=== PATIENT | male | born 1965 | race Caucasian/White ===

== ENCOUNTER → 2017-11-25 | Outpatient (CLI) | payer BC | END | disposition home or self-care (01) | LOC: LABWHC1 12:00 | PROVIDERS: ATTEND Surgery | DX: Z01.812 Encounter for preprocedural laboratory examination (principal) | CPT/HCPCS: 36415; 86850; 86900; 86901 ==

== ENCOUNTER 2017-12-02 11:54 | Day surgery (SDC) | payer BC ==
[2017-11-23 18:14] VITALS: BMI 29.0
--- NOTE | 2017-12-02 11:05 | P.GSHP ---
History of Present Illness H&P Date: 12/02/17 Chief Complaint: Incarcerated umbilical hernia This a 52-year-old male who presents today for laparoscopic robotic system repair of incarcerated umbilical hernia. Past Medical History Past Medical History: Asthma, Hypertension, Seizure Disorder Additional Past Medical History / Comment(s): Umbilical hernia, past hx of seizures, none since 1973, childhood asthma hx History of Any Multi-Drug Resistant Organisms: None Reported Past Surgical History: Orthopedic Surgery Additional Past Surgical History / Comment(s): left knee arthroscopy Past Anesthesia/Blood Transfusion Reactions: No Reported Reaction Smoking Status: Current every day smoker Medications and Allergies Home Medications Medication Instructions Recorded Confirmed Type Lisinopril [Zestril] 20 mg PO QAM 11/23/17 11/23/17 History Allergies Allergy/AdvReac Type Severity Reaction Status Date / Time No Known Allergies Allergy Verified 11/23/17 18:08 Surgical - Exam - General well developed, no distress - Eyes PERRL - ENT normal pinna - Neck no masses - Respiratory normal expansion - Cardiovascular Rhythm: regular - Abdomen Abdomen: soft, non tender Hernia: umbilical (Incarcerated) Assessment and Plan Assessment: Incarcerated umbilical hernia. We'll perform laparoscopic robotic assistance repair.
[~2017-12-02 11:54] MED LIST: DEXAMETHASONE SOD PHOSPHATE 10 MG/ML 1 ML VIAL IV ONE; HEPARIN SODIUM,PORCINE 5,000 UNIT/ML 1 ML VIAL SQ ONE; LACTATED RINGERS 1,000 ML IV ONE; LIDOCAINE 1% 20 ML VIAL (10MG/ML) FOR IV START INTRADERMA PRN; ONDANSETRON 4 MG/2 ML VIAL IVP ONE; SCOPOLAMINE 1.5MG/72HR PATCH TRANSDERM ONE; ceFAZolin IN SWFI 2 GM/20 ML SYRINGE IVP ONE
[2017-12-02 12:23] VITALS: RESP 16; TEMP 97.9
[2017-12-02] MEDS ORDERED: KETOROLAC 30 MG/ML 1 ML VIAL ONE (13:19)
[2017-12-02] MEDS ORDERED: HYDROmorphone (PF) 1 MG/ML ONE (13:19)
[2017-12-02] MEDS ORDERED: GLYCOPYRROLATE 0.2 MG/ML 2 ML VIAL ONE (13:19)
[2017-12-02] MEDS ORDERED: LABETALOL 5 MG/ML VIAL MDV ONE (13:19)
[2017-12-02] MEDS ORDERED: SUCCINYLCHOLINE CHLORIDE 100 MG/5 ML SYR IV ONE (13:19)
[2017-12-02] MEDS ORDERED: LIDOCAINE 1% INJ 10MG/ML (20 ML MDV) ONE (13:19)
[2017-12-02] MEDS ORDERED: NEOSTIGMINE 1 MG/ML 10 ML VIAL ONE (13:19)
[2017-12-02] MEDS ORDERED: ROCURONIUM BROMIDE 10 MG/ML 10 ML VIAL IV ONE (13:19)
[2017-12-02] MEDS ORDERED: fentaNYL (PF) 50 MCG/ML 2 ML AMP ONE (13:19)
[2017-12-02] MEDS ORDERED: PROPOFOL 10 MG/ML 20 ML VIAL IV ONE (13:19)
[2017-12-02] MEDS ORDERED: MIDAZOLAM 2 MG/2 ML VIAL ONE (13:19)
[2017-12-02] MEDS ORDERED: BUPIVACAINE-EPI 0.5%-1:200,000 10 ML VIAL SQ ONE (13:56)
[2017-12-02] MEDS ORDERED: LABETALOL 5 MG/ML VIAL MDV IVP ONE (14:50)
[2017-12-02] MEDS: HYDROmorphone 0.5 MG/0.5 ML SYRINGE IVP PRN ×4 (15:00→15:16)
[2017-12-02] MEDS ORDERED: diphenhydrAMINE 50 MG/ML 1 ML VIAL IVP ONE (15:19)
[2017-12-02 16:51] VITALS: BP 141/91; PULSE 94
[2017-12-02] MEDS ORDERED: HYDROcodone/APAP 7.5-325MG 1 EACH TAB PO ONE (16:55)
--- NOTE | 2017-12-02 19:10 | P.OP ---
Date of Procedure: 12/02/17 Preoperative Diagnosis: Incarcerated umbilical hernia Postoperative Diagnosis: Incarcerated umbilical hernia Procedure(s) Performed: Laparoscopic robotic-assisted repair of incarcerated umbilical hernia Excision of incarcerated fat Anesthesia: JERRICA Surgeon: Ronald Acevedo Estimated Blood Loss (ml): 5 Pathology: other (Incarcerated fat, omentum) Condition: stable Disposition: PACU Description of Procedure: The patient's placed on the operating table in supine position. He received general anesthesia. His abdomen was prepped and draped usual sterile fashion. The abdomen was entered in the left upper quadrant with a 5 mm blade less optical trocar under direct visualization. The abdomen then was insufflated. After adequate insufflation the laparoscope was placed. Cavity. Next a 8 mm robotic trochars placed left lower quadrant and a 12 mm trochars placed in left lateral position. The original 5 mm trocar was exchanged for an 8 mm robotic trocar. The patient's placed in the left side up position. The patient was undocked the robot. The umbilical hernia was visualized. There was incarcerated fat within the umbilical hernia. He is a hook cautery incarcerated fat and hernia sac were dissected free. The fascial defect was then closed with OV lock suture. The fascial defect was then buttressed with ventral light ST mesh. This secured with 2 OV lock suture. The patient was then undocked the robot. The needles were retrieved. The incarcerated fat/ omentum was retrieved. The 12 mm trocar site was closed with 0 Ethibond suture. The trochars withdrawn. The skin was closed interrupted 3-0 Monocryl suture. Dermabond was applied. Patient was sent to recovery in stable condition.
== END 2017-12-02 17:32 | disposition home or self-care (01) ==
LOC: OR 11:54
PROVIDERS: ATTEND Surgery
DX: K42.0 Umbilical hernia with obstruction, without gangrene (principal); J45.909 Unspecified asthma, uncomplicated; I10 Essential (primary) hypertension; G40.909 Epilepsy, unspecified, not intractable, without status epilepticus; Z79.899 Other long term (current) drug therapy; F17.210 Nicotine dependence, cigarettes, uncomplicated
CPT/HCPCS: 86900; 86901; 86850; 36415; 49653; C1781; J2250; J1200; J1644; J1100; J2710; J0690; J2405; J2001; J3010; J1885; J1170 ×2; J0330; J2704; 88302

== ENCOUNTER → 2020-08-21 | Outpatient (CLI) | payer BC ==
--- NOTE | 2020-08-21 19:13 | CT ---
EXAMINATION TYPE: CT lumbar spine wo con DATE OF EXAM: 08/21/2020 5:26 PM COMPARISON: Outside lumbar spine x-ray August 10, 2020. Outside MRI lumbar spine June 30, 2020 HISTORY: chronic low back pain CT DLP: 1542.3 mGycm Automated exposure control for dose reduction was used. Unenhanced CT of the lumbar spine was performed. Bone and soft tissue window settings are submitted as well as coronal and sagittal reconstructions. 5 lumbar type vertebra are redemonstrated. Persisten t dextroconvex scoliosis centered at L2 level. Persistent severe disc space narrowing with endplate s clerosis and large left spur left L2-L3 level redemonstrated. Additional mild/moderate multilevel ant erior spurring redemonstrated. Axial images at T12-L1 level redemonstrate mild broad disc bulge without stable. Axial images at L1-L2 level redemonstrate mild to moderate broad disc bulge effacing anterior thecal sac with mild facet degenerative changes bilaterally. Patent bilateral neural foramina. Axial images at the L2-L3 level show moderate broad disc bulge and mild facet arthropathy bilaterally . There is effacement of the anterior store worker lateral thecal sac. There is moderate left-sided neural foraminal narrowing redemonstrated. Axial images at L3-L4 level show mild right greater than left facet arthropathy bilaterally. Spinal c anal is preserved. [id number] broad disc bulge. Minimal effacement anterior thecal sac. Mild-to -moderate bilateral neural foraminal narrowing. Axial images at the L4-L5 levels show mild facet degenerative changes bilaterally. There is moderate broad-based posterior disc protrusion. There is more prominent effacement right thecal sac due to asy mmetric right-sided facet arthropathy. There is moderate to severe right and mild left-sided neural f oraminal narrowing. Axial images at the L5-S1 level show moderate left greater than right facet arthropathy. There is tin y central disc protrusion without spinal canal is preserved. There is moderate right and mild left-si ded neural foraminal narrowing redemonstrated. Mild/moderate calcified plaque common iliac artery branches bilaterally is present. IMPRESSION: Persistent scoliosis and multilevel degenerative changes in the lumbar spine as detailed above. Right L4-L5 level most prominent findings seen better on outside MRI.
== END | disposition home or self-care (01) ==
LOC: RADCTMAIN 17:12
PROVIDERS: ATTEND Orthopaedic Surgery
DX: M47.816 Spondylosis without myelopathy or radiculopathy, lumbar region (principal); M41.86 Other forms of scoliosis, lumbar region
CPT/HCPCS: 72131

== ENCOUNTER → 2020-09-03 | Outpatient (CLI) | payer BC | END | disposition home or self-care (01) | LOC: LABPAT 13:06 | PROVIDERS: ATTEND Orthopaedic Surgery | DX: Z22.322 Carrier or suspected carrier of Methicillin resistant Staphylococcus aureus (principal); Z01.812 Encounter for preprocedural laboratory examination | CPT/HCPCS: 87070 ==

== ENCOUNTER 2020-09-11 06:05 | Day surgery (SDC) | payer BC ==
[2020-09-05 14:07] VITALS: BMI 29.0
[~2020-09-11 06:05] MED LIST changes: +ACETAMINOPHEN TAB 500 MG TAB PO ONE; -DEXAMETHASONE SOD PHOSPHATE 10 MG/ML 1 ML VIAL IV ONE; +GABAPENTIN 300 MG CAP PO ONE; -HEPARIN SODIUM,PORCINE 5,000 UNIT/ML 1 ML VIAL SQ ONE; +HYDROmorphone 0.5 MG/0.5 ML SYRINGE IVP PRN; -LACTATED RINGERS 1,000 ML IV ONE; +LACTATED RINGERS 1,000 ML IV SCH; +LIDOCAINE 1% (10MG/ML) FOR IV START INTRADERMA PRN; -LIDOCAINE 1% 20 ML VIAL (10MG/ML) FOR IV START INTRADERMA PRN; +TRANEXAMIC ACID 1,000 MG in SODIUM CHLORIDE 0.9% 100 ML IVPB ONE; -ceFAZolin IN SWFI 2 GM/20 ML SYRINGE IVP ONE
[2020-09-11] MEDS ORDERED: LACTATED RINGERS 1,000 ML IV ONE ×2 (06:42→09:58)
--- NOTE | 2020-09-11 07:06 | P.HPOR ---
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 Patient states that he has noticed a significant increase recently. Patient notes right sided pain that intermittently radiates down his right leg. He notes night time symptoms. Patient has increased pain with prolonged weight bearing. patient states he has been going to his chiropractor which initially provided some relief but now is not doing anything for him. He also denies specific injury. He takes Ibuprofen as needed. he denies any bowel or bladder incontinence. He did state at one point his penis seemed to be numb however it is not currently he has no scrotal numbness and no rectal numbness. He denies any other issues no fevers chills shortness breath or chest pain at this time. The patients' past social, medical, family, surgical history, as well as review of systems, have been reviewed. Please refer to the Neurosurgery History and Physical form that has been scanned in to our electronic medical record system. Review of Systems 14 points review of systems completed and as stated in HPI or otherwise negative. Past Medical History Past Medical History: Asthma, Hypertension, Osteoarthritis (OA), Seizure Disorder Additional Past Medical History / Comment(s): Umbilical hernia, past hx of seizures, none since 1973, childhood asthma hx History of Any Multi-Drug Resistant Organisms: None Reported Past Surgical History: Orthopedic Surgery, Tonsillectomy Additional Past Surgical History / Comment(s): left knee arthroscopy Past Anesthesia/Blood Transfusion Reactions: No Reported Reaction Smoking Status: Current every day smoker - Past Family History Mother Family Medical History: Deep Vein Thrombosis (DVT) Medications and Allergies Home Medications Medication Instructions Recorded Confirmed Type lisinopriL [Zestril] 20 mg PO QAM 11/23/17 09/05/20 History Acetaminophen Tab [Tylenol] 650 mg PO Q4H 09/05/20 09/05/20 History Ibuprofen 800 mg PO Q8H 09/05/20 09/05/20 History Allergies Allergy/AdvReac Type Severity Reaction Status Date / Time No Known Allergies Allergy Verified 09/05/20 13:22 Physical Examination Osteopathic Statement: *. No significant issues noted on an osteopathic structural exam other than those noted in the History and Physical/Consult. General: Awake, alert, appropriate for age, in no acute distress. HEENT: No unusual neck masses around region of lateral neck triangle, thyroid, supraclavicular groove Heart: Regular rate and rhythm, normal S1, S2 and no murmur/gallop. Lungs: Clear to auscultation bilaterally with no use of accessory muscles. Extremities: Skin warm and dry without acute lesions, coloration, temperature, skin intact, no tenderness or erythema Integument: Hairy patches: Absent Dorsal skin dimples: Absent Cafe au lait spots: Absent Surgical incisions: none Palpation: Please see Pain drawing on Intake sheet for further detail. Midline spinal tenderness: yes lumbar E6 Paralumbar tenderness: yes bilateral E6 Parathoracic tenderness: No E6 Buttocks tenderness: No E6 Special findings: none POSTURAL and MUSCULO-SKELETAL EVALUATION: Coronal Balance: Neutral Recumbent testing: Patient is able to lay flat on back Sagittal Balance: Neutral Shoulder Profile: level Pelvic Girdle: level Neck ROM: Unrestricted Lumbar ROM: some pain and discomfort with extension and bending Shoulder ROM: Symmetric in abduction, ER/IR Hip ROM: Symmetric in abduction, adduction, ER/IR Knee ROM: Symmetric and intact in Flexion / extension Hands: normal Feet: normal VASCULAR STATUS : LEFT RIGHT Wrist Pulses intact intact Pedal Pulses (Dors. pedis & post.tibialis) intact intact Color normal normal Edema Absent Absent NEUROLOGIC EXAMINATION: Mental Status: Awake and alert, fully oriented, with normal attention, concentration and memory, and fluent, appropriate speech. Cranial Nerves: I: Olfactory not tested. II: Visual acuity normal, no visual field deficit noted with confrontation. III,IV: Normal pupillary reflexes & intact extraocular movements without nystagmus. V,: Intact symmetrical facial sensation. VII: Intact symmetrical facial motor movement VIII: Hearing intact. IX,X: swallow, & normal voice. XI: Sternocleidomastoid, trapezius function intact. XII: Tongue midline with normal movements. L'hermitte's Sign: Negative / absent Spurling'Sign: Absent bilaterally. Cubital percussion test: Absent bilaterally. Luma-Tinel sign - Carpal region: Absent bilaterally. Straight Leg Raising: Absent bilaterally. Crossed straight leg raise: negative O8 MOTOR EXAM (0-5/5, N/T) STRENGTH RIGHT LEFT Shoulder Abd (not part of the RUDOLPH score) 5 5 Elbow Flexors 5 5 Elbow Extensor 5 5 Wrist Dorsiflexors 5 5 Finger Abductor 5 5 Drilling Inspector 5 5 Hip Flexor (Not part of RUDOLPH Motor score) 5 5 Knee Flexor 5 5 Knee Extensor 5 5 Ankle dorsiflexor 5 5 Ankle plantarflexion 5 5 Extensor hallucis 5 5 REFLEXES(0-4/2, NT) RIGHT LEFT Upper Extremities 2 2 Lower Extremities 1 1 Pathological Reflexes RIGHT LEFT Daniels's Absent Absent Clonus Absent Absent # Indicates mechanical impairment Muscle appearance: normal tones symmetrical Rectal Tone: not tested Sensory system (0-4, N/T) Test type RU PAT RL LL Joint-Position 2 2 2 2 Vibration 2 2 2 2 Pain & LT sense 2 2 2 2 Dermatomal Deficit: none none none none Gait and Functional Evaluation: Ambulatory aids: Independent Romberg's test: Intact bilaterally Toe heel walk / heel-toe walk intact while maintaining satisfactory balance? yes and low right foot drop Squatting/straightening w/o assistance to a min of 60 degree knee flexion? yes Single leg stance: intact Trendelenburg sign negative bilaterally Hand and finger dexterity intact bilaterally? yes Disdiadochokinesis examination negative bilaterally? yes Results AP lateral flexion-extension views of the lumbar spine obtained and reviewed please demonstrate a mild amount of spondylosis without the lumbar spine. The worst of which is at L2-3 with some Modic endplate changes noted. patient has 40 of lumbar lordosis and 50 pelvic incidence he is coronally balanced as well as sagittally. There are no fractures or dislocations noted. There is facet arthrosis noted. AP pelvis demonstrates level pelvis congruent femoral acetabular joints with mild to moderate arthritic changes and no fractures or dislocations. MRI from outside facility is reviewed. this demonstrates a large right-sided facet cyst which is causing severe encroachment on the thecal sac at the L4 5 region. This also causes significant foraminal stenosis in this region. There is also stenosis at L2-3 which is mild to moderate and central in nature. There are no other fractures dislocations or masses noted. There is spondylosis at L2-3 and L5-S1 as well as L4 5 Assessment and Plan Assessment: It was my pleasure to have seen and examined Raymond Salguero. I reviewed the patient's clinical syndrome, physical findings, and imaging studies during the appointment today. It is my impression that the patient has a diagnosis of 1. L4-L5 right sided facet cyst with severe stenosis 2. L2-L3 spondylosis mild to moderate stenosis. I outlined the natural course history without intervention and various interventional options. Plan: Raymond Salguero is a 54 yo male presenting for evaluation of low back pain, RLE pain, weakness and radiculopathy. It was my pleasure to have seen and examined Raymond In our visit today we have had a chance to go over subjective complaints, physical examination findings and treatments including the natural course history without intervention and various interventional options. His/her imaging demonstrates L4-5 R side facet cyst with severe central and foraminal stenosis. On physical exam, Raymond Salguero demonstrates postitive straight leg raise, weakness in RLE, tensioning signs and radiculopathy. I explained to the patient that as her condition progresses it will cause further neurological deficits and eventual paralysis. Based on the patients imaging, physical exam, and the rapid progression and disabling nature of her symptoms, at this time I recommend surgery in the form or a: laminotomy and decompression. I discussed the risk and benefits of this procedure at length with Raymond Salguero The patient and her agreed to considered pursuing the procedure abovementioned. Prior to surgery, she should follow up with her PCP (Cardio, ID, IM etc) for clearance. Questions were invited and answered, and the patient wishes to proceed as outlined below. Currently, I am recommendin.L4-5 bilateral midline sparing laminoforaminotomy 2.Follow up with PCP for surgical clearance 3.Review of surgical risks and benefits as well as an educational packet on the proposed surgical procedure. 4. CT scan of Lumbar spine to evaluate bony detail and surgical planning. Risks: All surgical procedures come with inherent risks, including those related to positioning, anesthesia, intraoperative findings, and postoperative complications. It is important to understand that surgery does not come with any guarantee of a successful outcome as complications and adverse events are always possible. The patient was given a handout in office today discussing the surgical procedure and risks associated with the intervention, both of which were discussed with the patient. These risks include but are not limited to the following: ? Experiencing same, different or even worse symptoms in back, neck, arms, or legs compared to before surgery. ? Requiring further surgery or other forms of treatment presently or at some time in the future at same or other levels of the intended spine surgery. ? On an extreme but fortunately relatively rare basis severe complication such as blindness, stroke, heart attack, temporary and/or permanent nerve injury, paralysis, coma, or may occur, sometimes without known explanation. ? Surgical complications may include but are not limited to risk of infection, fluid accumulation in the surgical dissection site, including a seroma or hematoma, that requires additional surgery, wound drainage, bleeding, new numbness or weakness, vision changes/loss, spinal fluid leakage, non-healing and/or infected incision, headaches, difficulty or inability to swallow, hoarseness, hemopneumothorax, pneumothorax, impotence, retrograde ejaculation, vaginal dryness; injury to nerves, spinal cord, blood vessels, lymphatics or other vital organs (i.e., bowel injury, injury to the great vessels); heterotop ic bone formation; complications related to the hardware such as screws, rods, cages including misplaced hardware, device failure, instrumentation at the wrong spine level, hardware fracture/breakage, or hardware loosening; vertebral failure of the spinal column above or below the newly placed hardware; retained surgical instrumentations or devices and the need for further surgery. ? Medical risks of the planned spine surgery include but are not limited to generalized Infections to the whole body or local areas outside of the surgical site (sepsis), heart attack, bleeding, anaphylaxis, meningitis, seizure, epilepsy, hearing loss, burn shabazz, laceration of the head or other areas of the body, bruising, hypersensitivity of the skin, bladder over distension; allergic reaction; shoulder injury related to positioning; fat, blood and air clots to other areas of the body like heart, lungs, brain; failure of internal organs such as lungs, kidneys, liver and excessive bleeding. If blood transfusions are necessary, note that transfusions may cause intolerance reactions such as anaphylaxis or other complex reactions. Despite best efforts, the results of spine surgery might not heal in terms of bone, soft tissues such as skin, fascia, ligaments, and joints. Additionally, in order to achieve best possible results, spine surgery may be carried out beyond the initially planned levels and involve decompression, fusion including insertion of hardware at levels other than the original intended area of surgical interest change some portions of the procedure in order to ensure the best possible outcomes. With spine surgery and spinal fusion, there are different off label uses of instrumentation (devices, implants and hardware) as well as biological substances (bone morphogenic proteins, demineralized bone matrix) as well as using extra bone from allograft sources (i.e. cadaver bone) or autograft (iliac crest bone, ribs, or the spine itself). The patient has been given information about these practices and their inherent risks and benefits. The patient has had a chance to review all the listed information, has been given print outs detailing this information, and has had all his/her questions answered to their satisfaction. It was my pleasure to have seen and examined Raymond Salguero. In our visit today we have had a chance to go over my understanding of our patient's current condition, the natural course history without intervention and various interventional options. Questions were invited and answered, and the patient wishes to proceed as outlined above. I have seen and examined the patient for 25 minutes and we have spent more than 50% of the time in repeat and detailed cou nseling about the patient's condition, its natural course history with out and as much as can be predicted with surgery and re-review of various surgical treatment options. In conclusion, Raymond Salguero has requested we proceed with the above suggested surgery and are willing to accept risks and limitations of the suggested surgery as nature of the disease process and our best attempts at treatment for the condition. Thank you again for allowing us to be part of your patient's care. Please don't hesitate to contact me if you have any further questions. Signed and authenticated by: Todd [facility] [address] [place] [id number]
[2020-09-11] MEDS ORDERED: ROCURONIUM 10 MG/ML (10 ML VIAL) IV ONE (07:32)
[2020-09-11] MEDS ORDERED: LIDOCAINE 1% INJ 10MG/ML (20 ML MDV) ONE (07:32)
[2020-09-11] MEDS ORDERED: SODIUM CHLORIDE 0.9% 100 ML BAG ONE (07:32)
[2020-09-11] MEDS ORDERED: MIDAZOLAM 2 MG/2 ML VIAL ONE (07:32)
[2020-09-11] MEDS ORDERED: PROPOFOL 10 MG/ML 20 ML VIAL IV ONE (07:32)
[2020-09-11] MEDS ORDERED: NEOSTIGMINE 1 MG/ML 10 ML VIAL ONE (07:32)
[2020-09-11] MEDS ORDERED: PHENYLEPHRINE-0.9% NACL SYG 1 MG/10 ML SYRINGE ONE (07:32)
[2020-09-11] MEDS ORDERED: SUCCINYLCHOLINE CHLORIDE 100 MG/5 ML SYR IV ONE (07:32)
[2020-09-11] MEDS ORDERED: ESMOLOL 100 MG/10 ML VIAL ONE (07:32)
[2020-09-11] MEDS ORDERED: fentaNYL (PF) 50 MCG/ML 2 ML AMP ONE (07:32)
[2020-09-11] MEDS ORDERED: GLYCOPYRROLATE 0.2 MG/ML 2 ML VIAL ONE (07:32)
[2020-09-11] MEDS ORDERED: TRANEXAMIC ACID 1,000 MG/10 ML VIAL ONE (07:32)
[2020-09-11] MEDS ORDERED: GELATIN SPONGE,ABSORB (LARGE) 1 EACH SPONGE TOPICAL ONE (08:40)
[2020-09-11] MEDS ORDERED: BUPIVACAINE (PF) 0.25% 30 ML VIAL SQ ONE (08:41)
[2020-09-11] MEDS ORDERED: THROMBIN (BOVINE) 5,000 UNIT VIAL TOPICAL ONE (08:41)
[2020-09-11 10:21] VITALS: TEMP 96.9
[2020-09-11] MEDS: HYDROmorphone 1 MG/ML 1 ML SYRINGE IVP ONE ×2 (10:27→10:35)
[2020-09-11 10:32] VITALS: RESP 16
--- NOTE | 2020-09-11 10:37 | FL ---
EXAMINATION TYPE: FL guidance operating room, XR lumbar spine 2 or 3V DATE OF EXAM: 09/11/2020 CLINICAL HISTORY: Low back pain. L4-L5 spinal stenosis. TECHNIQUE: Fluoroscopy. Intraoperative 2 views lumbar spine. COMPARISON: CT lumbar spine August 21, 2020 FINDINGS: Fluoroscopic guidance was provided during low back surgical procedure performed by Dr. Roosevelt falcon. A total of 4 seconds of fluoroscopic time was utilized during the procedure and 3 spot imag es are acquired. Intraoperative images obtained show needle localization at L4-L5 disc space level for surgical planni ng. IMPRESSION: As Above.
[2020-09-11] MEDS ORDERED: oxyCODONE-APAP 5-325MG 1 EACH TAB ONE (11:22)
[2020-09-11] MEDS ORDERED: oxyCODONE-APAP 5-325MG 1 EACH TAB PO ONE (11:23)
[2020-09-11 12:08] VITALS: BP 143/84; PULSE 61
--- NOTE | 2020-09-12 08:40 | P.OP ---
Date of Procedure: 09/11/20 Preoperative Diagnosis: L4-5 facet cyst, severe stenosis Postoperative Diagnosis: L4-5 facet cyst with severe stenosis Procedure(s) Performed: 1. L4-5 bilateral laminectomy decompression 2. Partial medial facetectomy L4-5 3. Decompression of facet cyst 4. Use of intraoperative microscope Implants: NOne Anesthesia: MARYA Surgeon: Todd Land Estimated Blood Loss (ml): 150 IV fluids (ml): 900 Urine output (ml): 0 Pathology: other (pathology of L4-5 facet cyst) Condition: stable Disposition: PACU Indications for Procedure: This 54 year old male presents with years of low back pain. Patient states that he has noticed a significant increase recently. Patient notes right sided pain that intermittently radiates down his right leg. He notes night time symptoms. Patient has increased pain with prolonged weight bearing. patient states he has been going to his chiropractor which initially provided some relief but now is not doing anything for him. He also denies specific injury. He takes Ibuprofen as needed. he denies any bowel or bladder incontinence. He did state at one point his penis seemed to be numb however it is not currently he has no scrotal numbness and no rectal numbness. He denies any other issues no fevers chills shortness breath or chest pain at this time. Operative Findings: hemorrhagic facet cyst on the right with severe stenosis Description of Procedure: The patient was seen and examined in the preoperative area. All preoperative protocols were followed. Informed consent was obtained risks and benefits of the procedure were discussed at length. Risks including bleeding infection damage to the surrounding tissue and risk of reoperation were discussed with the patient. Risk of anesthesia up to and including was a discussed with the patient. These are outlined in the risk review. They were willing to accept these risks and all of the risks of surgery. The patient was given a weight-b ased dose of antibiotics in the form of 2 g of Kefzol preoperatively IVPB 1. The patient was seen and evaluated by the anesthesia team who deemed them fit for surgery. The site was marked, the patient was willing to proceed with the procedure. The patient was transferred to the operative suite by the Department of anesthesia. They were then drifted off to sleep by the department anesthesia Ge n. endotracheal intubation. The patient tolerated this well. . Once confirmation of lines and ventilation the patient was transferred to a prone Eulogio table very carefully. All bony prominences including wrists, elbows, axilla, chest, hips, and thighs, and feet were padded very well. Special attention was paid to the genitalia and these were padded accordingly. SCDs were placed on bilateral lower extremities and were connected. Arms were well padded and placed on arm boards up and out in the 90/90 position. Once in position, again we confirmed good ventilation capabilities and that lines were running appropriately. The patient's lumbar spine was then exposed. 1010s were placed outlining the incision site. Standard alcohol was used to clean the incision site and allowed to dry. C-arm was used to biomark the patient and confirm level for incision which was marked with a skin marker. Operative briefing was performed with all teams and everyone in agreement to proceed. The patient was then prepped and draped in a normal sterile fashion. Timeout was then performed and all parties were in agreement with the procedure to be performed. Midline incision was then made over the previously marked skin. Electrocautery dissection was taken down of the patient's lumbosacral fascia which was identified. This was cleaned with a Sotelo meticulous hemostasis was performed. Once this was done bilateral midline sparing fasciotomy was made. Subperiosteal dissection was taken down the lamina of L4 until this was exposed along with the superior lamina of L5. The facet joints were exposed and remained intact. There is T hypertrophic facets noted on bilateral L4 5 facet joints. These were extremely overgrown. The osteophytic growth was removed for better visualization. Under intraoperative microscopic dissection a Left-sided hemilaminotomy was then performed. This allowed good visualization of the dural sac ligamentum flavum was extremely hypertrophied and which was removed from this area. Traversing and exiting nerve roots were confirmed to have free- flowing areas. Meticulous hemostasis was performed with electrocautery bipolar as well as FloSeal. Attention was then drawn to the right hand side. Hemilaminotomy was performed. This revealed a large hemorrhagic cyst which was present involving the ligamentum flavum facet joint and extending to but not investing into the disc space. Due to the extensive amount of compression as well as visualization purposes the midline spinous process was removed to allow for a more complete decompression of the midline. This revealed continued hemorrhagic sustaining through the posterior aspects. This was completely decompressed. The ligamentum flavum was also decompressed from this level. The traversing and exiting roots were confirmed to be freed. Foraminotomies was performed bilaterally at L4 5. Medial facetectomy was performed. The stability of the spine was not compromised. Once the entirety of the hemorrhagic cyst was removed the dura was confirmed to be completely decompressed in this area. The wound was then copiously irrigated with Irricept followed by 2 L of normal sterile saline. Meticulous hemostasis ensued with bipolar electrocautery as well as FloSeal. 1 g of vancomycin powder was then placed into the wound. The lumbosacral fascia was closed with #1 Vicryl in a simple fashion. This was followed by subcu closure of 0 Vicryl 2-0 Vicryl. Subcuticular closure with 3-0 Monocryl and skin closure with skin glue. The wound was then cleaned and sterilely dressed with an optifoam dressing. The patient was transferred back to her hospital bed atraumatically. Patient was then awakened and extubated by the department of anesthesia having tolerated the procedure very well with no complications. She was transferred to the postoperative care unit in stable condition.
== END 2020-09-11 12:18 | disposition home or self-care (01) ==
LOC: OR 06:05 → 6NMEDSUR 10:09 → OR 10:09
PROVIDERS: ATTEND Orthopaedic Surgery
DX: M48.061 Spinal stenosis, lumbar region without neurogenic claudication (principal); M53.86 Other specified dorsopathies, lumbar region; M47.816 Spondylosis without myelopathy or radiculopathy, lumbar region; I10 Essential (primary) hypertension; J45.909 Unspecified asthma, uncomplicated; E78.5 Hyperlipidemia, unspecified; G40.909 Epilepsy, unspecified, not intractable, without status epilepticus; F17.210 Nicotine dependence, cigarettes, uncomplicated; Z79.899 Other long term (current) drug therapy; Z98.890 Other specified postprocedural states; Z82.49 Family history of ischemic heart disease and other diseases of the circulatory system; Z83.3 Family history of diabetes mellitus; Z82.5 Family history of asthma and other chronic lower respiratory diseases
CPT/HCPCS: 88307; 88311; 72100; 63047; C1762 ×2; J2250; J2710; J0690; J2405; J2001; J3010; J1170; J2370; J0330; J2704

== ENCOUNTER 2023-12-30 03:07 | Observation (INO) | payer BC ==
--- NOTE | 2023-12-30 03:32 | ED ---
General Adult HPI - General Chief complaint: Headache Stated complaint: Headache Time Seen by Provider: 12/30/23 03:11 Source: patient Mode of arrival: EMS Limitations: no limitations - History of Present Illness Initial comments: This patient is a 58-year-old man who arrives by ambulance to evaluation for a constellation of symptoms. The patient relates that he was at work talking to a coworker. He states that he then walked into a different room and noticed that his head was feeling "fuzzy. He states he was feeling dizzy and not right. There was also pressure in his chest. He sat down and didn't notice that he was sweating. EMS was called. They did give the patient aspirin and nitroglycerin. The patient states that the symptoms did improve and they brought him here to have evaluation. He does note that he had chiropractic manipulation of the neck but just before going to work. noticed that he had a funny feeling while he was driving to work. He pulled to the side and stopped and then the symptoms resolve and he was able to continue on a work. -: minutes(s) Location: head Quality: dull Consistency: intermittent, now resolved Improves with: medication Worsens with: none Associated Symptoms: diaphoresis Treatments Prior to Arrival: Aspirin, other - Related Data Home Medications Medication Instructions Recorded Confirmed lisinopriL [Zestril] 20 mg PO DAILY 11/23/17 12/30/23 Metoprolol Tartrate [Lopressor] 25 mg PO BID 12/30/23 12/30/23 Rivaroxaban [Xarelto] 20 mg PO W/SUPPER 12/30/23 12/30/23 Allergies Allergy/AdvReac Type Severity Reaction Status Date / Time No Known Allergies Allergy Verified 12/30/23 07:42 Review of Systems ROS Statement: Those systems with pertinent positive or pertinent negative responses have been documented in the HPI. ROS Other: All systems not noted in ROS Statement are negative. Constitutional: Denies: fever, chills Eyes: Denies: vision change ENT: Denies: congestion Respiratory: Denies: cough, dyspnea Cardiovascular: Reports: chest pain. Denies: palpitations, orthopnea, edema, syncope Gastrointestinal: Denies: abdominal pain, nausea, vomiting Genitourinary: Denies: dysuria, hematuria Musculoskeletal: Denies: back pain Skin: Denies: rash Neurological: Reports: headache, vertigo. Denies: weakness, numbness, paresthesias, confusion Hematological/Lymphatic: Denies: easy bleeding Past Medical History Past Medical History: Atrial Fibrillation, Asthma, Hypertension, Seizure Disorder Additional Past Medical History / Comment(s): Umbilical hernia, past hx of seizures, none since 1973, childhood asthma hx History of Any Multi-Drug Resistant Organisms: None Reported Past Surgical History: Orthopedic Surgery Additional Past Surgical History / Comment(s): left knee arthroscopy Past Anesthesia/Blood Transfusion Reactions: No Reported Reaction Past Psychological History: No Psychological Hx Reported Smoking Status: Current every day smoker Past Alcohol Use History: None Reported Past Drug Use History: None Reported - Past Family History Mother Family Medical History: Deep Vein Thrombosis (DVT) General Exam Limitations: no limitations General appearance: alert, in no apparent distress Head exam: Present: atraumatic, normocephalic Eye exam: Present: normal appearance, PERRL, EOMI. Absent: scleral icterus, con junctival injection, nystagmus ENT exam: Present: normal oropharynx Neck exam: Present: normal inspection. Absent: tenderness, meningismus Respiratory exam: Present: normal lung sounds bilaterally. Absent: respiratory distress, wheezes, rales, rhonchi, stridor Cardiovascular Exam: Present: regular rate, normal rhythm, normal heart sounds. Absent: systolic murmur, diastolic murmur, rubs, gallop GI/Abdominal exam: Present: soft. Absent: distended, tenderness, guarding, rebound, rigid, mass Extremities exam: Present: normal inspection, normal capillary refill. Absent: pedal edema, calf tenderness Back exam: Present: normal inspection. Absent: CVA tenderness (R), CVA tenderness (L) Neurological exam: Present: alert, oriented X3, CN II-XII intact. Absent: motor sensory deficit Skin exam: Present: warm, dry, intact, normal color. Absent: rash Course Vital Signs 12/30/23 12/30/23 12/30/23 03:09 04:04 06:47 Temperature 97.6 F Pulse Rate 67 66 70 Respiratory 18 16 16 Rate Blood Pressure 114/75 104/67 126/78 O2 Sat by Pulse 94 L 94 L 95 Oximetry 12/30/23 12/30/23 08:39 12:00 Temperature Pulse Rate 63 60 Respiratory 18 18 Rate Blood Pressure 110/73 107/58 O2 Sat by Pulse 99 96 Oximetry EKG Findings - EKG Results: EKG: interpreted by ERMD, sinus rhythm (With frequent PVCs, rate 73 bpm), normal axis, normal QRS, normal ST/T Medical Decision Making - Medical Decision Making The patient had chest x-ray which I interpreted as negative for acute infiltrate, congestive heart failure, pneumothorax. The patient had CT angiogram of the neck and brain which I interpreted as negative for acute arterial obstruction. Was pt. sent in by a medical professional or institution (, PA, [facility], urgent care, hospital, or shelter...) When possible be specific @ -[No] Did you speak to anyone other than the patient for history (EMS, parent, family, police, friend...)? What history was obtained from this source @ -[No] Did you review nursing and triage notes (agree or disagree)? Why? @ -[I reviewed and agree with nursing and triage notes] Were old charts reviewed (outside hosp., previous admission, EMS record, old EKG, old radiological studies, urgent care reports/EKG's, shelter records)? Report findings @ -[No old charts were reviewed] Differential Diagnosis (chest pain, altered mental status, abdominal pain women, abdominal pain men, vaginal bleeding, weakness, fever, dyspnea, syncope, headache, dizziness, GI bleed, back pain, seizure, CVA, palpatations, mental health, musculoskeletal)? @ -[Differential Dizziness: Benign paroxysmal positional Vertigo, Menieres disease, otitis media, acoustic neuroma, vertebrobasilar insufficiency, cerebellar stroke, encephalitis, hypovolemic, arrhythmia, coronary artery syndrome, anemia, this is not meant to be an all-inclusive list EKG interpreted by me (3pts min.). @ -[I interpreted as above] X-rays interpreted by me (1pt min.). @ -[I interpreted as above CT interpreted by me (1pt min.). @ -[I interpreted as above U/S interpreted by me (1pt. min.). @ -[None done] What testing was considered but not performed or refused? (CT, X-rays, U/S, labs)? Why? @ -[None] What meds were considered but not given or refused? Why? @ -[None] Did you discuss the management of the patient with other professionals (professionals i.e. , PA, [facility], lab, RT, psych nurse, social media director, marriage counselor minister, teacher, signals officer, shoe caser)? Give summary @ -[Case discussed with admitting physician and treatment recommendations incorporated Was smoking cessation discussed for >3mins.? @ -[No] Was critical care preformed (if so, how long)? @ -[No] Were there social determinants of health that impacted care today? How? (Homelessness, low income, unemployed, alcoholism, drug addiction, transportation, low edu. Level, literacy, decrease access to med. care, mcc, rehab)? @ -[No] Was there de-escalation of care discussed even if they declined (Discuss DNR or withdrawal of care, Hospice)? DNR status @ -[No] What co-morbidities impacted this encounter? (DM, HTN, Smoking, COPD, CAD, Cancer, CVA, ARF, Chemo, Hep., AIDS, mental health diagnosis, sleep apnea, morbid obesity)? @ -[None] Was patient admitted / discharged? Hospital course, mention meds given and route, prescriptions, significant lab abnormalities, going to OR and other pertinent info. @ -[Patient is 58-year-old man who had vertigo and other symptoms following chiropractic manipulation of the neck. He had CT angiogram to rule out arterial injury as the underlying etiology. The patient then admitted to have serial cardiac enzymes, telemetry monitoring, cardiology consultation to rule out cardiac etiology. Undiagnosed new problem with uncertain prognosis? @ -[No] Drug Therapy requiring intensive monitoring for toxicity (Heparin, Nitro, Insulin, Cardizem)? @ -[No] Were any procedures done? @ -[No] Diagnosis/symptom? @ -[Acute vertigo Acute chest pain Acute, or Chronic, or Acute on Chronic? @ -[Acute Uncomplicated (without systemic symptoms) or Complicated (systemic symptoms)? @ -[Uncomplicated Side effects of treatment? @ -[No] Exacerbation, Progression, or Severe Exacerbation? @ -[No] Poses a threat to life or bodily function? How? (Chest pain, USA, SC, pneumonia, PE, COPD, DKA, ARF, appy, cholecystitis, CVA, Diverticulitis, Homicidal, Suicidal, threat to staff... and all critical care pts) @ -[Possibly, requires further evaluation - Lab Data Result diagrams: 02/14/24 03:29 12/30/23 03:29 Lab Results 12/30/23 12/30/23 12/30/23 Range/Units 03:29 03:29 03:29 WBC 8.6 (3.8-10.6) k/uL RBC 4.55 (4.30-5.90) m/uL Hgb 13.7 (13.0-17.5) gm/dL Hct 40.6 (39.0-53.0) % MCV 89.2 (80.0-100.0) fL MCH 30.1 (25.0-35.0) pg MCHC 33.7 (31.0-37.0) g/dL RDW 12.7 (11.5-15.5) % Plt Count 250 (150-450) k/uL MPV 8.8 Neutrophils % 54 % Lymphocytes % 34 % Monocytes % 7 % Eosinophils % 3 % Basophils % 1 % Neutrophils # 4.7 (1.3-7.7) k/uL Lymphocytes # 2.9 (1.0-4.8) k/uL Monocytes # 0.6 (0-1.0) k/uL Eosinophils # 0.2 (0-0.7) k/uL Basophils # 0.1 (0-0.2) k/uL PT 11.8 (10.0-12.5) sec INR 1.1 (<1.2) APTT 27.4 (22.0-30.0) sec D-Dimer 0.22 (<0.60) mg/L FEU Sodium 136 L (137-145) mmol/L Potassium 3.9 (3.5-5.1) mmol/L Chloride 109 H (98-107) mmol/L Carbon Dioxide 20 L (22-30) mmol/L Anion Gap 7 mmol/L BUN 11 (9-20) mg/dL Creatinine 0.57 L (0.66-1.25) mg/dL Est GFR (CKD-EPI)AfAm >90 (>60 ml/min/1.73 sqM) Est GFR (CKD-EPI)NonAf >90 (>60 ml/min/1.73 sqM) Glucose 109 H (74-99) mg/dL Calcium 9.0 (8.4-10.2) mg/dL Magnesium 1.8 (1.6-2.3) mg/dL Total Bilirubin 0.4 (0.2-1.3) mg/dL AST 21 (17-59) U/L ALT 18 (4-49) U/L Alkaline Phosphatase 85 (38-126) U/L Troponin I (0.000-0.034) ng/mL NT-Pro-B Natriuret Pep 66 pg/mL Total Protein 6.3 (6.3-8.2) g/dL Albumin 3.9 (3.5-5.0) g/dL 12/30/23 Range/Units 03:29 WBC (3.8-10.6) k/uL RBC (4.30-5.90) m/uL Hgb (13.0-17.5) gm/dL Hct (39.0-53.0) % MCV (80.0-100.0) fL MCH (25.0-35.0) pg MCHC (31.0-37.0) g/dL RDW (11.5-15.5) % Plt Count (150-450) k/uL MPV Neutrophils % % Lymphocytes % % Monocytes % % Eosinophils % % Basophils % % Neutrophils # (1.3-7.7) k/uL Lymphocytes # (1.0-4.8) k/uL Monocytes # (0-1.0) k/uL Eosinophils # (0-0.7) k/uL Basophils # (0-0.2) k/uL PT (10.0-12.5) sec INR (<1.2) APTT (22.0-30.0) sec D-Dimer (<0.60) mg/L FEU Sodium (137-145) mmol/L Potassium (3.5-5.1) mmol/L Chloride (98-107) mmol/L Carbon Dioxide (22-30) mmol/L Anion Gap mmol/L BUN (9-20) mg/dL Creatinine (0.66-1.25) mg/dL Est GFR (CKD-EPI)AfAm (>60 ml/min/1.73 sqM) Est GFR (CKD-EPI)NonAf (>60 ml/min/1.73 sqM) Glucose (74-99) mg/dL Calcium (8.4-10.2) mg/dL Magnesium (1.6-2.3) mg/dL Total Bilirubin (0.2-1.3) mg/dL AST (17-59) U/L ALT (4-49) U/L Alkaline Phosphatase (38-126) U/L Troponin I <0.012 (0.000-0.034) ng/mL NT-Pro-B Natriuret Pep pg/mL Total Protein (6.3-8.2) g/dL Albumin (3.5-5.0) g/dL Disposition Clinical Impression: Acute chest pain, Vertigo Disposition: ADMITTED IP TO THIS HOSP Condition: Fair Is patient prescribed a controlled substance at d/c from ED?: No
[2023-12-30 04:12] LABS: ALT 18 U/L (4-49); AST 21 U/L (17-59); African American GFR (CKD) >90 (>60 ml/min/1.73 sqM); Albumin 3.9 g/dL (3.5-5.0); Alkaline Phosphatase 85 U/L (38-126); Anion Gap 7 mmol/L; Blood Urea Nitrogen 11 mg/dL (9-20); Carbon Dioxide 20 mmol/L (22-30); Chloride 109 mmol/L (98-107); Glucose 109 mg/dL (74-99); Magnesium 1.8 mg/dL (1.6-2.3); Non-African American GFR(CKD) >90 (>60 ml/min/1.73 sqM); Potassium 3.9 mmol/L (3.5-5.1); Sodium 136 mmol/L (137-145); Total Bilirubin 0.4 mg/dL (0.2-1.3); Total Protein 6.3 g/dL (6.3-8.2)
[2023-12-30 04:21] LABS: NT-Pro-B-Type Natriuretic Pept 66 pg/mL
[2023-12-30 04:24] LABS: Basophils # (A) 0.1 k/uL (0-0.2); Basophils % (A) 1 %; Eosinophils # (A) 0.2 k/uL (0-0.7); Eosinophils % (A) 3 %; HCT 40.6 % (39.0-53.0); HGB 13.7 gm/dL (13.0-17.5); Lymphocytes # (A) 2.9 k/uL (1.0-4.8); Lymphocytes % (A) 34 %; MCH 30.1 pg (25.0-35.0); MCHC 33.7 g/dL (31.0-37.0); MCV 89.2 fL (80.0-100.0); Mean Platelet Volume 8.8; Monocytes # (A) 0.6 k/uL (0-1.0); Monocytes % (A) 7 %; Neutrophils # (A) 4.7 k/uL (1.3-7.7); Neutrophils % (A) 54 %; Platelet Count 250 k/uL (150-450); RBC 4.55 m/uL (4.30-5.90); RDW 12.7 % (11.5-15.5); WBC 8.6 k/uL (3.8-10.6)
[2023-12-30 04:33] LABS: INR 1.1 (<1.2); Partial Thromboplastin Time 27.4 sec (22.0-30.0); Prothrombin Time 11.8 sec (10.0-12.5)
--- NOTE | 2023-12-30 04:55 | CT ---
EXAM: CT Angiography Head With Intravenous Contrast CLINICAL HISTORY: ITS.REASON CT Reason: headache TECHNIQUE: Axial computed tomographic angiography images of the head with intravenous contrast. CTDI is 14.4 mGy and DLP is 346.3 mGy-cm. This CT exam was performed using one or more of the following dose reduction techniques: automated exposure control, adjustment of the mA and/or kV according to patient size, and/or use of iterative reconstruction technique. MIP reconstructed images were created and reviewed. COMPARISON: No relevant prior studies available. FINDINGS: The dural venous sinuses are patent. Right internal carotid artery: No acute findings. Intracranial segment is patent with no significant stenosis. No aneurysm. Right anterior cerebral artery: Unremarkable. No occlusion or significant stenosis. No aneurysm. Right middle cerebral artery: Unremarkable. No occlusion or significant stenosis. No aneurysm. Right posterior cerebral artery: Unremarkable. No occlusion or significant stenosis. No aneurysm. Right vertebral artery: Unremarkable as visualized. Left internal carotid artery: No acute findings. Intracranial segment is patent with no significant stenosis. No aneurysm. Left anterior cerebral artery: Unremarkable. No occlusion or significant stenosis. No aneurysm. Left middle cerebral artery: Unremarkable. No occlusion or significant stenosis. No aneurysm. Left posterior cerebral artery: Unremarkable. No occlusion or significant stenosis. No aneurysm. Left vertebral artery: Unremarkable as visualized. Basilar artery: Unremarkable. No occlusion or significant stenosis. No aneurysm. IMPRESSION: Negative CT angiogram of the head. EXAM: CT Angiography Neck With Intravenous Contrast CLINICAL HISTORY: ITS.REASON CT Reason: headache TECHNIQUE: Routine carotid CT angiography protocol was performed with intravenous contrast. NASCET criteria using the distal ICAs for comparison were used for evaluation of stenoses. CTDI is 14.4 mGy and DLP is 346.4 mGy-cm. This CT exam was performed using one or more of the following dose reduction techniques: automated exposure control, adjustment of the mA and/or kV according to patient size, and/or use of iterative reconstruction technique. MIP reconstructed images were created and reviewed. COMPARISON: None. FINDINGS: VASCULATURE: Right common carotid artery: Unremarkable. No occlusion or significant stenosis. No dissection. Right internal carotid artery: Unremarkable. Extracranial segment is patent with no occlusion or significant stenosis. No dissection. Right external carotid artery: Unremarkable. No occlusion. Right vertebral artery: Unremarkable. No occlusion or significant stenosis. No dissection. Left common carotid artery: There is a 50% stenosis of the distal left common carotid artery. No dissection. Left internal carotid artery: Unremarkable. Extracranial segment is patent with no occlusion or significant stenosis. No dissection. Left external carotid artery: Unremarkable. No occlusion. Left vertebral artery: Unremarkable. No occlusion or significant stenosis. No dissection. NECK: Bones/joints: Moderate disc degeneration at C2-3 through C6-7. Dental caries with periapical lucencies about tooth #15 concerning for periapical abscesses. Recommended to consult. No acute fracture. Soft tissues: Prominent mediastinal lymph nodes. Bilateral thyroid nodules. Prominent cervical lymph nodes. Lung apices: Bronchitis, which may be infectious or inflammatory etiologies. CAROTID STENOSIS REFERENCE USING NASCET CRITERIA: % ICA stenosis = (1 - narrowest ICA diameter/diameter of distal cervical ICA) x 100. Mild - <50% stenosis. Moderate - 50-69% stenosis. Severe - 70-94% stenosis. Near occlusion - 95-99% stenosis. Occluded - 100% stenosis. IMPRESSION: There is a 50% stenosis of the distal left common carotid artery.
[2023-12-30] MEDS ORDERED: NITROGLYCERIN SL TABS 0.4 MG TAB SUBLINGUAL PRN ×2 (06:54→09:23)
[2023-12-30] MEDS: SODIUM CHLORIDE 0.9% 1,000 ML IV SCH ×2 (07:05→15:05)
--- NOTE | 2023-12-30 07:49 | XR ---
EXAMINATION TYPE: XR chest 2V DATE OF EXAM: 12/30/2023 COMPARISON: None HISTORY: 58-year-old male with chest pain TECHNIQUE: AP and lateral views FINDINGS: Heart is borderline in size. Mild interstitial prominence may be chronic. No consolidation or pleural effusion seen. IMPRESSION: Borderline heart size. Mild interstitial prominence may in part be chronic. Correlate to exclude mild pulmonary vascular congestion. No focal infiltrate seen.
[2023-12-30] MEDS: METOPROLOL TARTRATE 25 MG TAB PO SCH (08:41)
[2023-12-30] MEDS: lisinopriL 20 MG TAB PO SCH (08:41)
[2023-12-30 09:06] VITALS: RESP 18
[2023-12-30] MEDS ORDERED: ALPRAZolam 0.5 MG TAB PO PRN (09:23)
[2023-12-30] MEDS ORDERED: ALPRAZolam 0.25 MG TAB PO PRN (09:23)
[2023-12-30] MEDS: ASPIRIN 325 MG TAB PO STA (09:42)
[2023-12-30] MEDS: ATORVASTATIN 80 MG TAB PO STA (09:50)
[2023-12-30] MEDS: SODIUM CHLORIDE 0.9% 1,000 ML in EMPTY BAG 1 BAG IV SCH (09:50)
--- NOTE | 2023-12-30 09:57 | P.CRDCN ---
History of Present Illness History of present illness: HISTORY OF PRESENT ILLNESS: This is a 58-year-old male with a past medical history significant for hypertension, paroxysmal atrial fibrillation, and nicotine dependence. Patient follows in the office with Dr. Ram. We have been asked to see the patient in consultation for chest pain. Patient examined at the bedside in the emergency room. Patient states that yesterday he went to the chiropractor to have an adjustment on his neck. He states afterwards while driving he began to feel dizzy and lightheaded. He states that the room did not feel like it was spinning. But he felt off balance. He reports that he also began to have chest pain in the middle of his chest. He denied any radiation of the pain. He does report feeling nauseated at that time and also diaphoretic. He also reports having a headache. He states that he received aspirin and nitro and route to the hospital via EMS. He states he continued to have chest pain when he arrived to the emergency room but it eventually subsided in about 30 minutes. He reports that his neck is sore this morning after his chiropractic adjustment yesterday. He currently denies any chest pain or pressure at the time of exa mination. He denies any shortness of breath. He is a current cigarette smoker. He denies any alcohol use. He denies a family history of coronary artery disease. DIAGNOSTICS: - EKG reveals sinus mechanism with PVCs. No signs of acute ischemia.. - Chest xray borderline heart size. Mild interstitial prominence may in part be chronic. No focal infiltrate seen. - CTA: 50% stenosis of the distal left common carotid artery - Laboratory data: WBC 8.6. Hemoglobin 13.7. Platelet count 250. D-dimer 0.22. Sodium 136. Potassium 3.9. BUN 11. Creatinine 0.57. Magnesium 1.8. Troponin negative x 2. proBNP 66. - Current home cardiac medications include lisinopril 20 mg daily, metoprolol tartrate 25 mg twice a day, and Xarelto 20 mg with dinner. -Patient underwent Lexiscan stress test in October 2023 which revealed fixed inferior apical wall defect and normal gated SPECT images consistent with soft tissue attenuation. No evidence of stress-induced ischemia REVIEW OF SYSTEMS: At the time of my exam: CONSTITUTIONAL: Denies fever or chills. HEENT: Denies blurred vision, vision changes, or eye pain. Denies hemoptysis CARDIOVASCULAR: Denies chest pain. Denies orthopnea. Denies PND. Denies palpitations RESPIRATORY: Denies shortness of breath. GASTROINTESTINAL: Denies abdominal pain. Denies nausea or vomiting. HEMATOLOGIC: Denies bleeding disorders. GENITOURINARY: Denies any blood in urine. SKIN: Denies pruitis. Denies rash. PHYSICAL EXAM: VITAL SIGNS: Reviewed. GENERAL: Well-developed in no acute distress. HEENT: Head is normocephalic. Pupils are equal, round. Sclerae anicteric. Mucous membranes of the mouth are moist. Neck supple. No JVD or thyromegaly LUNGS: Respirations even and unlabored. Lungs essentially clear to auscultation bilaterally. HEART: Regular rate and rhythm. S1 and S2 heard. ABDOMEN: Soft. Nondistended. Nontender. EXTREMITIES: Normal range of motion. No clubbing or cyanosis. Peripheral pulses intact. No lower extremity edema NEUROLOGIC: Awake and alert. Oriented x 3. ASSESSMENT: Chest pain Dizziness and lightheadedness Chronic neck and back pain, status post chiropractic adjustment yesterday Paroxysmal atrial fibrillation Carotid stenosis, CT reveals 50% stenosis of distal left common carotid artery Hypertension Nicotine dependence PLAN: An acute coronary event has been ruled out Resume home cardiac medications Obtain 2D echo to assess cardiac structure and function Patient to undergo cardiac catheterization today with Dr. Ram Further recommendations pending patient course Nurse practitioner note has been reviewed by physician. Signing provider agrees with the documented findings, assessment, and plan of care documented by CONTINUING EDUCATION DIRECTOR as a scribe. Past Medical History Past Medical History: Atrial Fibrillation, Asthma, Hypertension, Seizure Disorder Additional Past Medical History / Comment(s): Umbilical hernia, past hx of seizures, none since 1973, childhood asthma hx History of Any Multi-Drug Resistant Organisms: None Reported Past Surgical History: Orthopedic Surgery Additional Past Surgical History / Comment(s): left knee arthroscopy Past Anesthesia/Blood Transfusion Reactions: No Reported Reaction Past Psychological History: No Psychological Hx Reported Smoking Status: Current every day smoker Past Alcohol Use History: None Reported Past Drug Use History: None Reported - Past Family History Mother Family Medical History: Deep Vein Thrombosis (DVT) Medications and Allergies Home Medications Medication Instructions Recorded Confirmed Type lisinopriL [Zestril] 20 mg PO DAILY 11/23/17 12/30/23 History Metoprolol Tartrate [Lopressor] 25 mg PO BID 12/30/23 12/30/23 History Rivaroxaban [Xarelto] 20 mg PO W/SUPPER 12/30/23 12/30/23 History Allergies Allergy/AdvReac Type Severity Reaction Status Date / Time No Known Allergies Allergy Verified 12/30/23 07:42 Physical Exam Vitals: Vital Signs Temp Pulse Resp BP Pulse Ox 12/30/23 06:47 70 16 126/78 95 12/30/23 04:04 66 16 104/67 94 L 12/30/23 03:09 97.6 F 67 18 114/75 94 L Intake and Output 12/29/23 12/30/23 12/30/23 22:59 06:59 14:59 Other: Weight 117.934 kg Results 12/30/23 03:29 12/30/23 03:29 Cardiac Enzymes 12/30/23 12/30/23 Range/Units 03:29 03:29 AST 21 (17-59) U/L Troponin I <0.012 (0.000-0.034) ng/mL Coagulation 12/30/23 Range/Units 03:29 PT 11.8 (10.0-12.5) sec APTT 27.4 (22.0-30.0) sec CBC 12/30/23 Range/Units 03:29 WBC 8.6 (3.8-10.6) k/uL RBC 4.55 (4.30-5.90) m/uL Hgb 13.7 (13.0-17.5) gm/dL Hct 40.6 (39.0-53.0) % Plt Count 250 (150-450) k/uL Comprehensive Metabolic Panel 12/30/23 Range/Units 03:29 Sodium 136 L (137-145) mmol/L Potassium 3.9 (3.5-5.1) mmol/L Chloride 109 H (98-107) mmol/L Carbon Dioxide 20 L (22-30) mmol/L BUN 11 (9-20) mg/dL Creatinine 0.57 L (0.66-1.25) mg/dL Glucose 109 H (74-99) mg/dL Calcium 9.0 (8.4-10.2) mg/dL AST 21 (17-59) U/L ALT 18 (4-49) U/L Alkaline Phosphatase 85 (38-126) U/L Total Protein 6.3 (6.3-8.2) g/dL Albumin 3.9 (3.5-5.0) g/dL Current Medications Generic Name Dose Route Start Last Admin Trade Name Freq PRN Reason Stop Dose Admin Sodium Chloride 1,000 mls @ 20 mls/hr 12/30/23 07:00 12/30/23 07:05 Saline 0.9% IV 20 mls/hr .Q24H [facility] Administration Lisinopril 20 mg 12/30/23 09:00 Lisinopril 20 Mg Tab PO QAM [facility] Metoprolol Tartrate 25 mg 12/30/23 09:00 Metoprolol Tartrate 25 Mg Tab PO BID [facility] Nitroglycerin 0.4 mg 12/30/23 06:54 Nitroglycerin Sl Tabs 0.4 Mg Tab SUBLINGUAL Q5M PRN Chest Pain Oxycodone HCl 5 mg 12/30/23 06:55 Oxycodone Hcl 5 Mg Tab PO Q6H PRN Pain Rivaroxaban 20 mg 12/30/23 17:30 Rivaroxaban 20 Mg Tab PO W/SUPPER [facility] Protocol Intake and Output 12/29/23 12/30/23 12/30/23 22:59 06:59 14:59 Other: Weight 117.934 kg 12/30/23 03:29 12/30/23 03:29
[2023-12-30] MEDS ORDERED: VERAPAMIL 2.5 MG/ML 2 ML AMP ONE (13:13)
[2023-12-30] MEDS: IV FLUID CONTINUATION 1,000 ML IV ONE (13:39)
[2023-12-30] MEDS ORDERED: fentaNYL (PF) 50 MCG/ML 2 ML AMP ONE (13:49)
[2023-12-30] MEDS: fentaNYL (PF) 50 MCG/1 ML VIAL IVP ONE (14:09)
[2023-12-30] MEDS: LIDOCAINE 2% INJ 20 MG/ML SQ ONE (14:12)
[2023-12-30] MEDS: VERAPAMIL 2.5 MG/ML 2 ML AMP INTRAARTER ONE (14:17)
[2023-12-30] MEDS: IOPAMIDOL-250 100ML BTL INTRAARTER ONE (14:28)
[2023-12-30] MEDS ORDERED: RX INFO: IV CONTRAST WAS GIVEN 1 EACH MISC MISCELLANE PRN (14:35)
--- NOTE | 2023-12-30 14:40 | P.CARDCATH ---
Date of Procedure: 12/30/23 Description of Procedure: Cardiac Catheterization: The patient is a 58-year-old male with known history of hypertension, hyperlipidemia, paroxysmal atrial fibrillation who presented with chest discomfort, diaphoresis, improving with nitroglycerin sublingually, he was evaluated by Dr. Tanner. Recommendations were made regarding cardiac catheterization, the risks and the complications were discussed with the patient who is in full understanding and agreement. Procedure Description: Patient was brought to school laboratory technician in fasting semi-sedated state after receiving Fentanyl and Benadryl achieiving moderate conscious sedated state. Using Xylocaine Anesthesia and modified Seldinger technique, a 6-[place] sheath was introduced in the right radial artery . Subsequently, selective coronary angiography was performed using a 5-[place] 3.5 bend Brenda catheter. Multiple views of the coronary artery including hemiaxial views were obtained. The right Brenda catheter was used to cross the aortic valve and LVEDP was calculated. Following that, catheter and sheath were removed. Hemostasis was obtained with deployment of vascular band . There was no immediate complication. Patient was returned to room in stable condition. Of note, the patient received a total of 5000 units of intravenous heparin as well as intra-arterial verapamil. Findings: Left main: This is a large size vessel, bifurcating into LAD and left circumflex, left main has no obstructive disease LAD: This is a large size vessel giving rise to a large proximal diagonal branch, the LAD and its branches have no obstructive disease Left circumflex: This is a large nondominant vessel giving rise to a large obtuse marginal branch that has no obstructive disease RCA: This is a dominant vessel bifurcating distally to PDA and PLV, the RCA and its branches have no obstructive disease Left Ventriculogram: Not performed Hemodynamics: There was no gradient across aortic valve, LVEDP was 16-18 mmHg Conclusion: 1. Normal coronary arteries 2. Right dominance 3. Normal LVEDP Recommendations: I see no evidence of obstructive disease to explain his symptoms, I would recommend to continue medical treatment with clinical observation. The findings and the recommendations were discussed with the patient and the family and they were in full understanding and agreement. Duration of sedation is 20 minutes.
[2023-12-30 16:20] VITALS: TEMP 98
[2023-12-30] MEDS ORDERED: RIVAROXABAN 20 MG TAB PO SCH (17:30)
[2023-12-30 18:39] VITALS: BP 123/73; PULSE 78
--- NOTE | 2023-12-30 19:06 | P.HPIM ---
History of Present Illness H&P Date: 12/30/23 Chief Complaint: Chest pain This is a pleasant 58-year-old patient who follows with Dr. Ewleina Ugarte. Chronic stable medical conditions include atrial fibrillation, asthma, hypertension, last seizure in 1973. Smoker. Follows with commercial photographer Dr. Ram. He had gone to his chiropractor yesterday and had an adjustment done on his neck. Later he felt dizzy and lightheaded while driving. He felt a bit off balance. They started having chest pain. Denied any radiation or exacerbating. Slight nausea. Also felt a bit perspiration. Symptoms lasted for about 30 minutes. He had some neck discomfort this morning. When seen this morning he was not having any chest pain. Comfortable. Review of systems: GEN.: None EYES: None HEENT: None NECK: None RESPIRATORY: None CARDIOVASCULAR: None GASTROINTESTINAL: None GENITOURINARY: None MUSCULOSKELETAL: As above e LYMPHATICS: None HEMATOLOGICAL: None PSYCHIATRY: None NEUROLOGICAL: None 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 No significant alcohol intake Physical examination: VITAL SIGNS: 97.6, 67, 18, 114/75, 94% room air GENERAL: BMI 30.8, reclining bed awake comfortable. EYES: Pupils equal. Conjunctiva merly l. HEENT: External appearance of nose and ears normal, oral cavity grossly normal. NECK: JVD not raised; masses not palpable. HEART: First and second heart sounds are normal; no edema. LUNGS: Respiratory rate normal; clear to auscultation. ABDOMEN: Soft, nontender, liver spleen not palpable, no masses palpable. PSYCH: Alert and oriented x3; mood and affect merly l. MUSCULOSKELETAL:No Clubbing/cyanosis;muscles-grossly intact NEUROLOGICAL: Cranial nerves grossly intact; no facial asymmetry, power and sensation grossly intact. LYMPHATICS: No lymph nodes palpable in the axilla and neck INVESTIGATIONS, reviewed in the clinical context: December 30: White count 8.6 hemoglobin 13.7 platelets 250 potassium 3.9 sodium 136 creatinine 0.57 Pro BNP: 66 Chest x-ray film personally reviewed by me-some interstitial prominence. EKG tracing personally reviewed by me-normal sinus rhythm. PVC. May be ST-T wave changes. Troponin I less than 0.012 x 3 Assessment and plan: -Possible unstable angina. Seen by cardiology. Plan for cardiac catheterization. IV heparin. Aspirin. -IV heparin monitoring Follow PTT -Essential hypertension Lopressor. Zestril. -Paroxysmal atrial fibrillation currently in sinus rhythm Lopressor. Xarelto Care was discussed with the patient. Questions answered. Plan for cardiac catheterization by cardiology. Past Medical History Past Medical History: Atrial Fibrillation, Asthma, Hypertension, Seizure Disorder Additional Past Medical History / Comment(s): Umbilical hernia, past hx of seizures, none since 1973, childhood asthma hx History of Any Multi-Drug Resistant Organisms: None Reported Past Surgical History: Orthopedic Surgery Additional Past Surgical History / Comment(s): left knee arthroscopy Past Anesthesia/Blood Transfusion Reactions: No Reported Reaction Past Psychological History: No Psychological Hx Reported Smoking Status: Current every day smoker Past Alcohol Use History: None Reported Past Drug Use History: None Reported - Past Family History Mother Family Medical History: Deep Vein Thrombosis (DVT) Medications and Allergies Home Medications Medication Instructions Recorded Confirmed Type lisinopriL [Zestril] 20 mg PO DAILY 11/23/17 12/30/23 History Metoprolol Tartrate [Lopressor] 25 mg PO BID 12/30/23 12/30/23 History Rivaroxaban [Xarelto] 20 mg PO W/SUPPER 12/30/23 12/30/23 History Allergies Allergy/AdvReac Type Severity Reaction Status Date / Time No Known Allergies Allergy Verified 12/30/23 07:42 Physical Exam Vitals: Vital Signs Temp Pulse Resp BP Pulse Ox 12/30/23 08:39 63 18 110/73 99 12/30/23 06:47 70 16 126/78 95 12/30/23 04:04 66 16 104/67 94 L 12/30/23 03:09 97.6 F 67 18 114/75 94 L Intake and Output 12/29/23 12/30/23 12/30/23 22:59 06:59 14:59 Other: Weight 117.934 kg Results CBC & Chem 7: 12/30/23 03:29 12/30/23 03:29 Labs: Abnormal Lab Results - Last 24 Hours (Table) 12/30/23 Range/Units 03:29 Sodium 136 L (137-145) mmol/L Chloride 109 H (98-107) mmol/L Carbon Dioxide 20 L (22-30) mmol/L Creatinine 0.57 L (0.66-1.25) mg/dL Glucose 109 H (74-99) mg/dL
--- NOTE | 2023-12-30 19:08 | P.DS ---
Providers Date of admission: 12/30/23 06:55 Expected date of discharge: 12/30/23 Attending physician: Rodrigue Levine Consults: 12/30/23 06:54 Consult Physician Routine Consulting Provider: Corbin Duvall Consult Reason/Comments: chest pain Do you want consulting provider notified?: Yes Primary care physician: Ewelina Ugarte MD Hospital Course: Chief Complaint: Chest pain This is a pleasant 58-year-old patient who follows with Dr. Ewelina Ugarte. Chronic stable medical conditions include atrial fibrillation, asthma, hypertension, last seizure in 1973. Smoker. Follows with optical instrument repairer Dr. Ram. He had gone to his chiropractor yesterday and had an adjustment done on his neck. Later he felt dizzy and lightheaded while driving. He felt a bit off balance. They started having chest pain. Denied any radiation or exacerbating. Slight nausea. Also felt a bit perspiration. Symptoms lasted for about 30 minutes. He had some neck discomfort this morning. When seen this morning he was not having any chest pain. Comfortable. Patient subsequently underwent a cardiac catheterization today by Dr. Ram. Found to have normal coronaries. Cleared for discharge. 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 No significant alcohol intake Physical examination: VITAL SIGNS: 97.6, 60, 18, 107/58, 96% room air GENERAL: BMI 30.8, reclining bed awake comfortable. EYES: Pupils equal. Conjunctiva merly l. HEENT: External appearance of nose and ears normal, oral cavity grossly normal. NECK: JVD not raised; masses not palpable. HEART: First and second heart sounds are normal; no edema. LUNGS: Respiratory rate normal; clear to auscultation. ABDOMEN: Soft, nontender, liver spleen not palpable, no masses palpable. PSYCH: Alert and oriented x3; mood and affect merly l. MUSCULOSKELETAL:No Clubbing/cyanosis;muscles-grossly intact NEUROLOGICAL: Cranial nerves grossly intact; no facial asymmetry, power and sensation grossly intact. LYMPHATICS: No lymph nodes palpable in the axilla and neck INVESTIGATIONS, reviewed in the clinical context: Cardiac catheterization: Normal coronaries December 30: White count 8.6 hemoglobin 13.7 platelets 250 potassium 3.9 sodium 136 creatinine 0.57 Pro BNP: 66 Chest x-ray film personally reviewed by me-some interstitial prominence. EKG tracing personally reviewed by me-normal sinus rhythm. PVC. May be ST-T wave changes. Troponin I less than 0.012 x 3 Assessment and plan: -Anterior chest wall pain likely musculoskeletal Cardiac catheterization normal coronaries -IV heparin monitoring Follow PTT -Essential hypertension Lopressor. Zestril. -Paroxysmal atrial fibrillation currently in sinus rhythm Lopressor. Xarelto Disposition: Home Past Medical History Past Medical History: Atrial Fibrillation, Asthma, Hypertension, Seizure Disorder Additional Past Medical History / Comment(s): Umbilical hernia, past hx of seizures, none since 1973, childhood asthma hx History of Any Multi-Drug Resistant Organisms: None Reported Past Surgical History: Orthopedic Surgery Additional Past Surgical History / Comment(s): left knee arthroscopy Past Anesthesia/Blood Transfusion Reactions: No Reported Reaction Past Psychological History: No Psychological Hx Reported Smoking Status: Current every day smoker Past Alcohol Use History: None Reported Past Drug Use History: None Reported Plan - Discharge Summary Discharge Rx Participant: No New Discharge Prescriptions: No Action lisinopriL [Zestril] 20 mg PO DAILY Rivaroxaban [Xarelto] 20 mg PO W/SUPPER Metoprolol Tartrate [Lopressor] 25 mg PO BID Discharge Medication List lisinopriL [Zestril] 20 mg PO DAILY 11/23/17 [History] Metoprolol Tartrate [Lopressor] 25 mg PO BID 12/30/23 [History] Rivaroxaban [Xarelto] 20 mg PO W/SUPPER 12/30/23 [History] Follow up Appointment(s)/Referral(s): Paul Ram MD [STAFF PHYSICIAN] - 2 Weeks Dionisio Torres MD [REFERRING] - 1-2 days Patient Instructions/Handouts: After Radial Heart Catheterization (GEN) Activity/Diet/Wound Care/Special Instructions: Resume Xarelto 20 mg on 12/31 Discharge Disposition: HOME SELF-CARE
[2023-12-31] MEDS ORDERED: HEPARIN SODIUM,PORCINE 10,000 UNIT in SODIUM CHLORIDE 0.9% 1,000 ML IRRIGATION PRN (07:00)
[2023-12-31] MEDS ORDERED: HEPARIN SODIUM,PORCINE (1 ML) 2,500 UNIT in SODIUM CHLORIDE 0.9% 250 ML IRRIGATION PRN (07:00)
[2023-12-31] MEDS ORDERED: ASPIRIN 325 MG TAB PO SCH (09:00)
--- NOTE | 2023-12-31 11:06 | CA ---
Transthoracic Echo Report Name: Raymond Salguero Age: 58 Gender: M : 1965 Exam Date: 12/30/2023 16:58 Exam Location: [place] [facility] Ht (in): 77 Wt (lb): 260 Ordering Physician: Evon Levine Attending/Referring Phys: [id number], Abner Chief Station Engineer Marcella Mcrae RDCS Procedure CPT: Indications: LV function, CP Cardiac Hx: Technical Quality: Fair Contrast 1: Total Dose (mL): Contrast 2: Total Dose (mL): MEASUREMENTS (Male / Female) Normal Values 2D ECHO LV Diastolic Diameter PLAX 3.9 cm 4.2 - 5.9 / 3.9 - 5.3 cm LV Systolic Diameter PLAX 3.0 cm IVS Diastolic Thickness 1.5 cm 0.6 - 1.0 / 0.6 - 0.9 cm LVPW Diastolic Thickness 1.5 cm 0.6 - 1.0 / 0.6 - 0.9 cm LV Relative Wall Thickness 0.8 LA Volume 58.6 cm??? 18 - 58 / 22 - 52 cm??? LA Volume Index 22.9 cm???/m??? 16 - 28 cm???/m??? M-MODE Aortic Root Diameter MM 3.9 cm LA Systolic Diameter MM 4.0 cm LA Ao Ratio MM 1.0 AV Cusp Separation MM 1.7 cm DOPPLER AV Peak Velocity 155.9 cm/s AV Peak Gradient 9.7 mmHg AV Mean Velocity 113.1 cm/s AV Mean Gradient 5.7 mmHg AV Velocity Time Integral 31.9 cm LVOT Peak Velocity 111.2 cm/s LVOT Peak Gradient 4.9 mmHg LVOT Velocity Time Integral 24.0 cm MV Area PHT 2.6 cm??? Mitral E Point Velocity 102.1 cm/s Mitral A Point Velocity 96.0 cm/s Mitral E to A Ratio 1.1 MV Deceleration Time 289.3 ms MV E' Velocity 9.3 cm/s Mitral E to MV E' Ratio 11.0 TR Peak Velocity 264.8 cm/s TR Peak Gradient 28.0 mmHg Right Ventricular Systolic Press 31.6 mmHg FINDINGS Left Ventricle Moderately increased left ventricular wall thickness. Left ventricular cavity size normal. Normal left ventricular systolic function with no obvious regional wall motion abnormalities. Left ventricular ejection fraction is estimated at 55-60 %. Right Ventricle Mild right ventricular dilatation. Right ventricular systolic pressure within normal limits. Right Atrium Normal right atrial size. Left Atrium Mildly increased left atrial area. Mitral Valve Structurally normal mitral valve. No mitral stenosis, regurgitation or prolapse. Aortic Valve No aortic valve stenosis or regurgitation. Tricuspid Valve Structurally normal tricuspid valve. Mild tricuspid regurgitation. Pulmonic Valve Structurally normal pulmonic valve. Pericardium No pericardial effusion. Aorta Normal size aortic root and proximal ascending aorta. CONCLUSIONS Moderately increased left ventricular wall thickness Left ventricular ejection fraction 55-60% No mitral regurgitation Mild tricuspid regurgitation RVSP 31 Previewed by: Dr. Flako Tanner DO (Electronically Signed) Final Date: 31 December 2023 11:05
== END 2023-12-30 18:43 | disposition home or self-care (01) ==
LOC: EC 03:07 → 6NMEDSUR 06:55
PROVIDERS: ADMIT Hospitalist; ATTEND Hospitalist
DX: R07.89 Other chest pain (principal); R61 Generalized hyperhidrosis; R51.9 Headache, unspecified; R11.0 Nausea; I65.22 Occlusion and stenosis of left carotid artery; I49.3 Ventricular premature depolarization; I10 Essential (primary) hypertension; I48.0 Paroxysmal atrial fibrillation; F17.210 Nicotine dependence, cigarettes, uncomplicated; G89.29 Other chronic pain; M54.2 Cervicalgia; M54.9 Dorsalgia, unspecified; Z79.01 Long term (current) use of anticoagulants; Z79.899 Other long term (current) drug therapy; Z86.69 Personal history of other diseases of the nervous system and sense organs; Z82.49 Family history of ischemic heart disease and other diseases of the circulatory system
CPT/HCPCS: 99285; 36415; 93005; 93306; 93458; 85379; 83880; 80053; 83735; 84484; 85025; 85610; 85730; 71046; 70496; 70498; G0378; C1769 ×2; C1894; J2001; J1644; Q9966; Q9967; J3010